=== PATIENT | female | born 1955 | race Native Hawaiian/Other Pacific Islander ===

== ENCOUNTER 2018-04-21 08:46 | Emergency (ER) | payer OTHER ==
[2018-04-21 08:58] VITALS: BMI 21.2
[2018-04-21 09:00] VITALS: O2SAT 99
--- NOTE | 2018-04-21 10:01 | C.PDOC ---
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 Patient reports she has been ambulate since injury and came in for an evaluation. Patient offers no other medical complaints at this time. Time Seen by Provider: 04/21/18 09:18 Chief Complaint (Nursing): Lower Extremity Problem/Injury History Per: Patient History/Exam Limitations: no limitations Onset/Duration Of Symptoms: Hrs Current Symptoms Are (Timing): Still Present Recent travel outside of the [place]: No - Ankle/Foot Description Of Injury: Struck With Object (chair ) Past Medical History Reviewed: Historical Data, Nursing Documentation, Vital Signs Vital Signs: Last Vital Signs Temp 97.5 F L 04/21/18 10:07 Pulse 61 04/21/18 10:07 Resp 18 04/21/18 10:07 BP 123/79 04/21/18 10:07 Pulse Ox 99 04/21/18 10:18 - Medical History PMH: HTN, Hypercholesterolemia Surgical History: No Surg Hx - [facility] Procedures PHYSICAL THERAPY NEC (08/03/14) Family History: States: No Known Family Hx - Social History Hx Tobacco Use: No Hx Alcohol Use: No Hx Substance Use: No - Immunization History Hx Tetanus Toxoid Vaccination: No Hx Influenza Vaccination: Yes Hx Pneumococcal Vaccination: No Review Of Systems Except As Marked, All Systems Reviewed And Found Negative. Musculoskeletal: Negative for: Leg Pain, Foot Pain Neurological: Negative for: Weakness, Numbness Physical Exam - Physical Exam Appears: Non-toxic, No Acute Distress Skin: Warm, Dry Head: Atraumatic, Normacephalic Eye(s): bilateral: Normal Inspection, PERRL, EOMI Oral Mucosa: Moist Neck: Supple Chest: Symmetrical Cardiovascular: Rhythm Regular, No Murmur Respiratory: Normal Breath Sounds, No Rales, No Rhonchi, No Wheezing Gastrointestinal/Abdominal: Normal Exam, Soft, No Tenderness Extremity: Swelling (right medial ankle) Neurological/Psych: Oriented x3, Normal Speech Gait: Steady ED Course And Treatment O2 Sat by Pulse Oximetry: 99 (RA) Pulse Ox Interpretation: Normal - Other Rad X-ray right ankle X-Ray: Interpreted by Me, Viewed By Me Interpretation: No fracture Medical Decision Making Medical Decision Making: Impression: right ankle contusion Plan: * ibuprofen 400 mg PO * X-ray right ankle, 3 views Disposition - Disposition Disposition: HOME/ ROUTINE Disposition Time: 10:00 Condition: STABLE Additional Instructions: follow up with employee health as needed motrin as needed for pain rest, ice, elevate return to hospital if symptoms worsens or progress Instructions: Taking Care of Bruises, Contusion (DC) Forms: General Discharge Instructions, [facility] (Hebrew), Work Excuse - Clinical Impression Clinical Impression: Contusion - Scribe Statement The provider has reviewed the documentation as recorded by the Kathe Johnson Luis Manuel Provider Attestation: All medical record entries made by the Kathe were at my direction and personally dictated by me. I have reviewed the chart and agree that the record accurately reflects my personal performance of the history, physical exam, medical decision making, and the department course for this patient. I have also personally directed, reviewed, and agree with the discharge instructions and disposition.
[2018-04-21 10:07] VITALS: BP 123/79; PULSE 61; RESP 18; TEMP 97.5
--- NOTE | 2018-04-21 14:24 | RAD ---
Date of service: 04/21/2018 PROCEDURE: Right Ankle Radiographs. HISTORY: Pain. No history of recent/ related trauma provided COMPARISON: None FINDINGS: BONES: Plantar and Achilles Tendon insertion calcaneal spurs. JOINTS: Normal. No osteoarthritis. Ankle mortise maintained. Talar dome intact SOFT TISSUES: Normal. OTHER FINDINGS: None. IMPRESSION: No acute findings related to/accounting for the clinical presentation. Additional benign and/or incidental findings described above.
== END 2018-04-21 10:10 | disposition home or self-care (01) ==
LOC: C.ER 08:46
DX: S90.01XA Contusion of right ankle, initial encounter (principal); W22.03XA Walked into furniture, initial encounter; E78.00 Pure hypercholesterolemia, unspecified; I10 Essential (primary) hypertension

== ENCOUNTER 2018-07-31 02:09 | Emergency (ER) | payer OTHER ==
[2018-07-31 02:10] VITALS: BMI 21.2
--- NOTE | 2018-07-31 03:13 | C.PDOC ---
History Of Present Illness 62 year old female presents to the ED for evaluation of right knee contusion. 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 Patient is ambulatory on the knee. She denies head injury or sensory changes. Time Seen by Provider: 07/31/18 02:27 Chief Complaint (Nursing): Lower Extremity Problem/Injury History Per: Patient History/Exam Limitations: no limitations Onset/Duration Of Symptoms: Hrs Current Symptoms Are (Timing): Still Present Additional History Per: Patient Past Medical History Reviewed: Historical Data, Nursing Documentation, Vital Signs - Medical History PMH: HTN, Hypercholesterolemia Surgical History: No Surg Hx - [facility] Procedures PHYSICAL THERAPY NEC (08/03/14) Family History: States: Unknown Family Hx - Social History Hx Tobacco Use: No Hx Alcohol Use: No Hx Substance Use: No - Immunization History Hx Tetanus Toxoid Vaccination: No Hx Influenza Vaccination: Yes Hx Pneumococcal Vaccination: No Review Of Systems Skin: Positive for: Other (right knee contusion ) Neurological: Negative for: Weakness, Numbness Physical Exam - Physical Exam Appears: Non-toxic, No Acute Distress Skin: Normal Color, Warm, Dry Extremity: Normal ROM, Tenderness (to right pre-patellar area ), Capillary Refill (less than 2 seconds ), No Deformity, No Swelling Neurological/Psych: Oriented x3, Normal Speech, Normal Cognition Gait: Steady ED Course And Treatment O2 Sat by Pulse Oximetry: 99 (on RA) Pulse Ox Interpretation: Normal - Other Rad R knee X-Ray: Interpreted by Me (normal) Progress Note: Right knee XR ordered and reviewed. Motrin PO given. Medical Decision Making Medical Decision Making: infrapatellar contusion, normal films Disposition Doctor Will See Patient In The: Office Counseled Patient/Family Regarding: Studies Performed, Diagnosis - Disposition Referrals: Bridger Barrera MD [Staff Provider] - Disposition: HOME/ ROUTINE Disposition Time: 03:12 Condition: GOOD Additional Instructions: normal R knee x-rays ice packs 1/2 hour per hour, nothing hot motrin/advil 400 mg every 6 hours as needed Instructions: Prepatellar Bursitis, Contusion (DC) Forms: [employer] (Nepalese) - Clinical Impression Clinical Impression: Contusion - Scribe Statement The provider has reviewed the documentation as recorded by the Scribe (Tanisha Pickett) Provider Attestation: All medical record entries made by the Scribe were at my direction and personally dictated by me. I have reviewed the chart and agree that the record accurately reflects my personal performance of the history, physical exam, m edical decision making, and the department course for this patient. I have also personally directed, reviewed, and agree with the discharge instructions and disposition.
[2018-07-31 03:32] VITALS: BP 160/76; PULSE 71; RESP 20; TEMP 98.6; O2SAT 99
--- NOTE | 2018-07-31 09:11 | RAD ---
Right knee three views History: Fall. Injury. Comparison: None available. Findings: Enthesopathic change seen at the anterior superior bony patella. Small suprapatellar joint effusion Productive change at the tibial tubercle. Posterior vascular calcifications. Soft tissue swelling within the prepatellar soft tissues. Moderate narrowing of the patellofemoral joint space as well as the medial compartment of the femorotibial joint space. Impression: Enthesopathic change seen at the anterior superior bony patella. Small suprapatellar joint effusion Productive change at the tibial tubercle. Posterior vascular calcifications. Soft tissue swelling within the prepatellar soft tissues. Moderate narrowing of the patellofemoral joint space as well as the medial compartment of the femorotibial joint space. If pain persists, consider correlation with MRI.
== END 2018-07-31 03:33 | disposition home or self-care (01) ==
LOC: C.ER 02:09
DX: S80.01XA Contusion of right knee, initial encounter (principal); W22.8XXA Striking against or struck by other objects, initial encounter; Y92.239 Unspecified place in hospital as the place of occurrence of the external cause; Y99.0 Civilian activity done for income or pay

== ENCOUNTER 2018-09-28 15:52 | Outpatient (CLI) | payer OTHER | END 2018-09-28 15:53 | disposition home or self-care (01) | LOC: C.MRIC 15:52 ==